=== PATIENT | female | born 1980 | race Caucasian/White ===

== ENCOUNTER 2024-04-14 13:24 | Emergency (ER) | payer OTHER, BC ==
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
[2024-04-14] MEDS: ORPHENADRINE 30 MG/ML 2 ML VIAL IM STA (14:57)
[2024-04-14] MEDS: HYDROcodone/APAP 5-325MG 1 EACH TAB PO STA (14:57)
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
[2024-04-14] MEDS: ACET/COD 300 MG/30 MG STARTER PACK 6 TAB BTL PO STA (16:13)
[2024-04-14 16:18] VITALS: BP 127/82; PULSE 55; RESP 14; TEMP 97.8
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
== END 2024-04-14 16:20 | disposition home or self-care (01) ==
LOC: EC 13:24
DX: S16.1XXA Strain of muscle, fascia and tendon at neck level, initial encounter (principal); M54.50 Low back pain, unspecified; Z88.0 Allergy status to penicillin; V89.2XXA Person injured in unspecified motor-vehicle accident, traffic, initial encounter; Y92.410 Unspecified street and highway as the place of occurrence of the external cause
CPT/HCPCS: 72100; 72125; 70450; 99284; 96372; J2360